=== PATIENT | female | born 1990 | race Hispanic/Latino ===

== ENCOUNTER 2016-06-28 17:23 | Emergency (ER) | payer OTHER ==
[~2016-06-28] VITALS: Ht 152.4 cm; Wt 49.0 kg
--- NOTE | 2016-06-28 18:21 | ED GI/GU/ABDOMINAL COMPLAINT ---
History of Present Illness General Chief Complaint: Female Urogenital Problems Stated Complaint: 5WKS PREG, SEVERE ABD. CRAMPING X FEW DAYS Source: patient Exam Limitations: no limitations Vital Signs & Intake/Output Vital Signs & Intake/Output Vital Signs Date Time Temp Pulse Resp B/P Pulse O2 O2 Flow FiO2 Ox Delivery Rate 06/28 1946 97.7 78 16 113/59 99 Room Air 06/28 1852 Room Air 06/28 1729 97.7 105 16 98/65 100 Room Air Allergies Coded Allergies: No Known Allergies (06/28/16) Reconcile Medications Ondansetron (Zofran Odt) 4 MG TAB.RAPDIS 1 TAB SL TID NAUSEA Triage Note: PT STATES SHE IS 5 WEEKS AND HAS BEEN HAVING ABD CRAMPING FOR THE PAST FEW DAYS. PT DENIES BLEEDING OR DISCHARGE. Triage Nurses Notes Reviewed? yes ? y Is pt currently ? No Onset: Abrupt Duration: day(s):, constant Timing: recent history Radiation: no radiation No Modifying Factors: none HPI: 26-year-old female comes into emergency room for further evaluation of lower abdominal cramping has been going on for the past couple days. Patient reports that she took a positive test this week and followed up with her OB/ MANAGER NEWS doctor who confirmed that she had a IUP with ultrasound. She denies any vaginal bleeding or leakage of fluid. Denies any vomiting but has associated nausea. Denies any other associated symptoms. (ANA LAURA LEMA) Past History Travel History Traveled to [place] past 21 day No Medical History Any Pertinent Medical History? see below for history Psychiatric: anxiety, depression Surgical History Surgical History: non-contributory Psychosocial History What is your primary language Yi Tobacco Use: Quit >30 days ago ETOH Use: occasional use Illicit Drug Use: denies illicit drug use Family History Hx Contributory? No (ANA LAURA LEMA) Review of Systems Review of Systems Constitutional: Reports: no symptoms. EENTM: Reports: no symptoms. Respiratory: Reports: no symptoms. Cardiovascular: Reports: no symptoms. GI: Reports: see HPI. Genitourinary: Reports: see HPI. Musculoskeletal: Reports: no symptoms. Skin: Reports: no symptoms. Neurological/Psychological: Reports: no symptoms. Hematologic/Endocrine: Reports: no symptoms. Immunologic/Allergic: Reports: no symptoms. All Other Systems: Reviewed and Negative (ANA LAURA LEMA) Physical Exam Physical Exam General Appearance: well developed/nourished, no apparent distress, alert Head: atraumatic, normal appearance Eyes: Bilateral: normal appearance, EOMI. Ears, Nose, Throat, Mouth: hearing grossly normal, moist mucous membrane Neck: normal inspection, full range of motion Respiratory: normal breath sounds, no respiratory distress Cardiovascular: regular rate/rhythm Gastrointestinal: soft, tenderness (mild lower abdomen) Back: normal inspection Extremities: normal range of motion Neurologic/Psych: awake, alert, oriented x 3, normal gait Skin: intact, normal color Core Measures ACS in differential dx? No Severe Sepsis Present: No Septic Shock Present: No (ANA LAURA LEMA) Progress Differential Diagnosis: appendicitis, diverticulitis, ectopic , ovarian cyst, ovarian torsion, PID/cervicitis, peptic ulcer, PUD/GERD, perforated viscous, threatened AB, UTI/pyelo Plan of Care: Orders Procedure Date/time Status URINALYSIS 06/28 1808 Complete HUMAN BETA HCG TITRE 06/28 1808 Complete COMPREHENSIVE METABOLIC PANEL 06/28 1808 Complete CBC WITHOUT DIFFERENTIAL 06/28 1808 Complete Laboratory Tests 06/28/164: Urine Color YEL, Urine Clarity CLEAR, Urine pH 6.0, Ur Specific [place] 1.025, Urine Protein NEG, Urine Ketones NEG, Urine Nitrite NEG, Urine Bilirubin NEG, Urine Urobilinogen 0.2, Ur Leukocyte Esterase NEG, Ur Microscopic EXAM NOT REQUIRED, Urine Hemoglobin NEG, Urine Glucose NEG 06/28/16 1843: Anion Gap 11, Estimated GFR > 60, BUN/Creatinine Ratio 16.7, Glucose 82, Calcium 10.0, Total Bilirubin 0.3, AST 19, ALT 33, Alkaline Phosphatase 48, Total Protein 7.2, Albumin 4.4, Globulin 2.8, Albumin/Globulin Ratio 1.6, Beta HCG, Quant 68696.0, CBC w Diff NO MAN DIFF REQ, RBC 4.09 L, MCV 95.9, MCH 31.7 H, RDW 13.0, MPV 9.4, Gran % 54.5, Lymphocytes % 38.4, Monocytes % 3.6, Eosinophils % 2.1, Basophils % 1.4, Absolute Granulocytes 4.8, Absolute Lymphocytes 3.4, Absolute Monocytes 0.3, Absolute Eosinophils 0.2, Absolute Basophils 0.1, PUBS MCHC 33.1 Initial ED EKG: none (ANA LAURA LEMA) Departure Departure Disposition: HOME OR SELF CARE Condition: Stable Clinical Impression Primary Impression: Abdominal pain affecting Referrals: UNKNOWN (PCP/Family) Additional Instructions: Take Zofran ODT as prescribed. Take Tylenol as needed for pain. Drink plenty of fluids. Rest. Contact your [employer] doctor tomorrow for repeat ultrasound within the next 48 hours and a repeat blood hormone test. Return if any other concerns worsening symptoms. Please go over all results of today's visit with your primary care doctor. Contact your primary care doctor to let them know you were here in the emergency room. There may be nonspecific findings which may not be related to your visit today here in the emergency room but may require further evaluation and chronic monitoring by your primary care doctor. If you had a laceration today the chance of foreign body always remains. You should follow-up with your primary care doctor for recheck in 3-5 days for a wound check. If you had an x-ray done there is a chance that a fracture could have been missed on initial read and you should follow-up with your primary care doctor for repeat x-rays if symptoms persist. If your blood pressure was elevated here in the emergency room please have rechecked by her primary care doctor within the next 48 hours by your primary care doctor. If you were prescribed a narcotic here in the emergency room or any type of controlled substances you're not allowed to drive while taking this medication or operate any type of heavy machinery. Narcotics can make you feel lightheaded dizziness nausea and can cause constipation. You may need to roll picker a stool softener. Thank you for choosing [facility] emergency room. Please return to the emergency room immediately if you have any other concerns worsening of symptoms. Departure Forms: Customer Survey General Discharge Information Prescriptions: Current Visit Scripts Ondansetron (Zofran Odt) 1 TAB SL TID #10 TAB Comments 06/28/2016 9:47:40 PM Patient clinically looks well upon reevaluation and is in no apparent distress. Patient reports that she feels significantly better. Patient had no acute abdomen on exam. No vaginal bleeding. Patient has a confirmed IUP by her OB/ MANAGER NEWS doctor this week. They showed me a picture of the ultrasound on their phone which looks to be an IUP with a gestational sac. At this time patient can follow-up with [employer] doctor for repeat ultrasound and repeat beta hCG within the next 48 hours. Patient understands and agrees with plan of care. All questions addressed. (ANA LAURA LEMA) PA/BENCH MACHINE OPERATOR Co-Sign Statement Statement: ED Attending supervision documentation- [] I saw and evaluated the patient. I have also reviewed all the pertinent lab results and diagnostic results. I agree with the findings and the plan of care as documented in the PA's/BENCH MACHINE OPERATOR's documentation. [x] I have reviewed the ED Record and agree with the PA's/BENCH MACHINE OPERATOR's documentation. [] Additions or exceptions (if any) to the PAs/BENCH MACHINE OPERATOR's note and plan are summarized below: [] (CHARLY CARPENTER,YONATAN Lima)
[2016-06-28] MEDS ORDERED: JUNEL FE 1 MG-1 EACH (18:30)
[2016-06-28 18:55] LABS: ABSOLUTE BASOPHIL COUNT 0.1 /CUMM (0.0-0.2); ABSOLUTE EOSINOPHIL COUNT 0.2 /CUMM (0.0-0.7); ABSOLUTE GRANULOCYTE CT 4.8 /CUMM (1.4-6.5); ABSOLUTE LYMPH COUNT 3.4 /CUMM (1.2-3.4); ABSOLUTE MONOCYTE COUNT 0.3 /CUMM (0.10-0.60); BASOPHIL % 1.4 % (0.0-2.0); EOSINOPHIL % 2.1 % (0-5); GRANULOCYTE % 54.5 % (42.2-75.2); HEMATOCRIT 39.2 % (37-47); MEAN CORPUSCULAR HGB 31.7 PG (27.0-31.0); MEAN CORPUSCULAR HGB CONC 33.1 G/DL (33.0-37.0); MEAN CORPUSCULAR VOLUME 95.9 FL (81.0-99.0); MEAN PLATELET VOLUME 9.4 FL (7.4-10.4); PLATELET COUNT 214 /CUMM (130-400); RED BLOOD CELL CT 4.09 /CUMM (4.20-5.40); WHITE BLOOD CELL COUNT 8.8 /CUMM (4.8-10.8)
[2016-06-28 19:47] VITALS: BP 113/59
[2016-06-28] MEDS ORDERED: ZOFRAN ODT4 M1 SL (21:06)
== END 2016-06-28 21:19 ==
LOC: ERH 17:23
PROVIDERS: Physician Assistant Medical
DX: O26.91 Pregnancy related conditions, unspecified, first trimester (principal); R10.30 Lower abdominal pain, unspecified
CPT/HCPCS: 81003; J3101